=== PATIENT | male | born 1990 | race Caucasian/White ===

== ENCOUNTER 2017-01-17 22:35 | Emergency (ER) | payer MEDICAID, MEDICARE ==
[~2017-01-17] VITALS: Ht 188 cm; Wt 87.6 kg
[2017-01-17 22:39] VITALS: BP 118/69
== END 2017-01-17 23:22 | disposition home or self-care (01) ==
LOC: ED 23:00
DX: B35.3 Tinea pedis (principal); F15.10 Other stimulant abuse, uncomplicated
CPT/HCPCS: 99282

== ENCOUNTER 2017-04-08 01:17 | Emergency (ER) | payer MEDICAID, MEDICARE ==
[~2017-04-08] VITALS: Ht 185.4 cm; Wt 83.3 kg
[2017-04-08 01:22] VITALS: BP 145/87
== END 2017-04-08 03:20 | disposition home or self-care (01) ==
LOC: ED 02:50
DX: K08.89 Other specified disorders of teeth and supporting structures (principal); F12.10 Cannabis abuse, uncomplicated
CPT/HCPCS: 99283